=== PATIENT | male | born 1950 | race Caucasian/White ===

== ENCOUNTER 2018-11-18 09:52 | Day surgery (SDC) | payer OTHER ==
[~2018-11-18] VITALS: Ht 182.9 cm; Wt 122.8 kg
[~2018-11-18 09:52] MED LIST: ATOR10 PO; Augmentin 875-1 EACH PO; CARV6.25 PO; Cymbalta30 MG PO; ENAL5 PO; Multi-Day Vita1 EACH; Norco 10-325 T1 EACH PO; PREG150 PO; SERT100 PO; TRAACE; ZOLOFT; ZOLP10 PO
--- NOTE | 2018-11-18 11:09 | NUR ---
11/18/18 1109 Richard Hayes RECEIVED REPORT FROM [facility]. PT RESTING ON GURN. FAMILY IN ROOM, CALL LIGHT IN REACH. PT DENIES ANY NEEDS AT THIS TIME. PT UPDATED ON DELAY IN ROOM DUE TO PREVIOUS CASE RUNNING LONG. WILL CONITNUE TO KEEP PT UPDATED.
== END 2018-11-18 13:13 | disposition home or self-care (01) ==
LOC: ORSCSDS 09:52
PROVIDERS: Internal Medicine Gastroenterology
PROC: 0DBN8ZX Excision of Sigmoid Colon, Via Natural or Artificial Opening Endoscopic, Diagnostic (ICD-10-PCS; principal; 2018-11-18 11:00)
PROC: 0DBP8ZX Excision of Rectum, Via Natural or Artificial Opening Endoscopic, Diagnostic (ICD-10-PCS; principal; 2018-11-18 11:00)
PROC: 0DBL8ZX Excision of Transverse Colon, Via Natural or Artificial Opening Endoscopic, Diagnostic (ICD-10-PCS; principal; 2018-11-18 11:00)
DX: Z12.11 Encounter for screening for malignant neoplasm of colon (principal); Z86.010 Personal history of colon polyps; Z80.0 Family history of malignant neoplasm of digestive organs; D12.5 Benign neoplasm of sigmoid colon; D12.3 Benign neoplasm of transverse colon; K63.5 Polyp of colon; K64.8 Other hemorrhoids; K64.4 Residual hemorrhoidal skin tags; K57.30 Diverticulosis of large intestine without perforation or abscess without bleeding; I50.9 Heart failure, unspecified; Z79.899 Other long term (current) drug therapy
CPT/HCPCS: 88305; J2704; J7120

== ENCOUNTER 2018-12-19 06:50 | Day surgery (SDC) | payer OTHER ==
[~2018-12-19] VITALS: Ht 180.3 cm; Wt 124.5 kg
[~2018-12-19 06:50] MED LIST changes: +ATOR20 PO; +DULO60 PO; +FURO20 PO; +STIOLTO RESPIMAT4 GM INH
--- NOTE | 2018-12-19 08:45 | NUR ---
Pt arrives via chair, slighty drowsy denies pain. IV right hand #22 infusing NS shady 900ml. Sbar Adam Richmond RN. Pt right radial site wnl. Pt up to brp ambulated abraham well. vss stable slight elevation in bp.
--- NOTE | 2018-12-19 12:36 | NUR ---
Pt iv removed cath intact #20 left F/A cath intact at 1220. Removed right radial tr-band dabbed dry applied cloth dot then arm board. Pt verbalized understanding of post op care. Pt stable
== END 2018-12-19 12:48 | disposition home or self-care (01) ==
LOC: MHTC 06:50
DX: I25.10 Atherosclerotic heart disease of native coronary artery without angina pectoris (principal); I11.0 Hypertensive heart disease with heart failure; I50.9 Heart failure, unspecified; E78.5 Hyperlipidemia, unspecified; G47.33 Obstructive sleep apnea (adult) (pediatric); F32.9 Major depressive disorder, single episode, unspecified; Z79.899 Other long term (current) drug therapy
CPT/HCPCS: 93458; 99152; 99153; C1769; C1894; J1644; J2250; J3010; J7030; Q9967

== ENCOUNTER 2022-03-02 10:37 | Day surgery (SDC) | payer OTHER ==
[~2022-03-02] VITALS: Ht 180.3 cm; Wt 124.0 kg
[2022-03-02] MEDS ORDERED: Aspir 8181 MG (11:46)
[2022-03-02] MEDS ORDERED: ATOR10 (11:46)
[2022-03-02] MEDS ORDERED: MELA3 (11:47)
[2022-03-02] MEDS ORDERED: Vitamin D1000 UNI1 (11:47)
[2022-03-02] MEDS ORDERED: FURO40 (11:47)
[2022-03-02] MEDS ORDERED: CYMBALTA60 M1 (11:47)
[2022-03-02] MEDS ORDERED: Vitamin B-12100 MCG (11:48)
== END 2022-03-02 13:12 | disposition home or self-care (01) ==
LOC: ORSCSDS 10:37
PROVIDERS: Internal Medicine Gastroenterology
PROC: 0DBK8ZX Excision of Ascending Colon, Via Natural or Artificial Opening Endoscopic, Diagnostic (ICD-10-PCS; principal; 2022-03-02 12:00)
PROC: 0DBH8ZX Excision of Cecum, Via Natural or Artificial Opening Endoscopic, Diagnostic (ICD-10-PCS; principal; 2022-03-02 12:00)
DX: Z12.11 Encounter for screening for malignant neoplasm of colon (principal); Z86.010 Personal history of colon polyps; Z80.0 Family history of malignant neoplasm of digestive organs; D12.2 Benign neoplasm of ascending colon; K64.4 Residual hemorrhoidal skin tags; I50.9 Heart failure, unspecified; G47.33 Obstructive sleep apnea (adult) (pediatric); F32.A Depression, unspecified; Z85.46 Personal history of malignant neoplasm of prostate; E66.9 Obesity, unspecified; I25.2 Old myocardial infarction; Z68.38 Body mass index [BMI] 38.0-38.9, adult; Z79.899 Other long term (current) drug therapy; Z79.82 Long term (current) use of aspirin
CPT/HCPCS: 88305; J2370; J2704; J7120

== ENCOUNTER 2022-03-29 06:50 | Day surgery (SDC) | payer OTHER, MEDICARE ==
[~2022-03-29 06:50] MED LIST changes: +ATOR10; +Aspir 8181 MG; +CYMBALTA60 M1; +FURO40; +MELA3; +Vitamin B-12100 MCG; +Vitamin D1000 UNI1
== END 2022-03-29 23:18 | disposition home or self-care (01) ==
LOC: MHTC 06:50
DX: I25.10 Atherosclerotic heart disease of native coronary artery without angina pectoris (principal); R06.02 Shortness of breath; Z01.810 Encounter for preprocedural cardiovascular examination
CPT/HCPCS: 78452; 93017; A9500; J0706; J2785

== ENCOUNTER 2022-04-23 06:19 | Inpatient (IN) | payer OTHER ==
[~2022-04-23] VITALS: Ht 180.3 cm; Wt 126.6 kg
[~2022-04-23 06:19] MED LIST changes: -ATOR10; -Aspir 8181 MG; +Aspir 8181 MG PO; -CYMBALTA60 M1; +CYMBALTA60 M1 PO; -FURO40; +FURO40 PO; -MELA3; +MELA3 PO; -Multi-Day Vita1 EACH; -Vitamin B-12100 MCG; +Vitamin B-12100 MCG PO; -Vitamin D1000 UNI1; +Vitamin D1000 UNI1 PO; +[UNRECOGNIZED DRUG - OTHER] PO
--- NOTE | 2022-04-23 07:23 | NUR ---
Patient up to Ambulate independently. Gait steady.Ambulatory in Day Surgery Surgical site prepped with 2% Chlorhexidine cloth wipe. Phi Paws warming gown applied. History, Chart, Medications and Allergies reviewed before start of procedure.Lungs clear T/O to Auscultation. Patient confirms NPO status and agrees with scheduled surgery. Pre-Op teaching done. Pt verbalizes understanding. Patient States Post-Procedure ride home has been arranged. Patient reports completing Chlorhexadine shower X2 prior to admission to hospital.
[2022-04-23 16:05] LABS: Hematocrit 46.3 % (37.0-53.0); Hemoglobin 14.9 g/dL (13.5-17.5)
[2022-04-23 16:16] LABS: Source, Urine Foley catheter
[2022-04-23 16:27] LABS: Appearance, Urine Hazy (Clear); Bilirubin, Urine Neg (Neg); Blood, Urine 5+ (Neg); Color, Urine Yellow (P-Yellow); Glucose Qualitative, Urine Neg (Neg); Ketones, Urine Neg (Neg); Leukocyte Esterase, Urine Neg (Neg); Nitrite, Urine Neg (Neg); Protein, Urine 1+ (Neg); Urobilinogen, Urine NORM (Normal)
[2022-04-23 17:20] LABS: Bacteria Few /hpf; Hyaline Casts 0-2 /lpf (0-2); Red Blood Cells, Urine 25-50 /hpf (0-2); Squamous Epithelial Cells Rare /hpf (Few)
--- NOTE | 2022-04-23 18:26 | NUR ---
SHIFT SUMMARY POD0 LAP APPY c PARTIAL CECECTOMY, A/OX4, VSS, TOLERATING PO, AMBULATING c SBA, VOIDING WELL. PT HAD MODERATE AMOUNT OF BLOOD FROM HIS PENIS AFTER HIS FIRST AND SECOND VOID, BOTH TIMES HE HAD BLOOD DRIPPING FOR APPROXIMATELY 10 MINUTES FOR AN ESTIMATED TOTAL OF 100ML EACH TIME, PT RINSED OFF IN SHOWER AFTER SECOND TIME AND SURGEON NOTIFIED. PER PACU REPORT, XAVIER PLACED IN OR WAS TRAUMATIC AND PT REPORTS HE BLEEDS EASY IN GROIN AREA THOUGH NOT NORMALLY FROM HIS URETHRA. XAVIER PLACED BY SURGEON AFTER SECOND VOID ONCE PT HAD RETURNED TO BED, NO BLOOD NOTED IN XAVIER AFTER IT WAS PLACED, ALL URINE OUT HAS BEEN CLEAR YELLOW SINCE XAVIER PLACED. PT REPORTS PAIN TOLERABLE WITH PO NARCOTICS ORDERED. NO OTHER EVENTS THIS SHIFT, CALL LIGHT IN REACH, WILL CTM AND REPORT TO ONCOMING NOC RN.
--- NOTE | 2022-04-24 05:25 | NUR ---
SUMMARY PT PAIN HAS BEEN MANAGED WELL. PT HAS BEEN SLEEPING COMFORTABLY. PT HAS BEEN USING CPAP WITHOUT ISSUE. PT XAVIER DRAINING CLEAR YELLOW URINE TO GRAVITY. NO BLOOD NOTED. PT CURRENTLY SLEEPING IN NO DISTRESS. CALL LIGHT IN REACH.
[2022-04-24 06:02] LABS: BASOPHILS ABSOLUTE AUTO 0.01 K/mm3 (0.00-0.23); BASOPHILS PERCENT AUTO 0 % (0-2); EOSINOPHILS PERCENT AUTO 0 % (0-6); Hematocrit 40.2 % (37.0-53.0); Hemoglobin 12.9 g/dL (13.5-17.5); IMMATURE GRAN ABSOLUTE AUTO 0.03 K/mm3 (0.00-0.10); IMMATURE GRAN PERCENT AUTO 0 % (0-1); LYMPHOCYTES ABSOLUTE AUTO 1.11 K/mm3 (0.84-5.20); LYMPHOCYTES PERCENT AUTO 12 % (21-46); MONOCYTES ABSOLUTE AUTO 0.65 K/mm3 (0.16-1.47); MONOCYTES PERCENT AUTO 7 % (4-13); Mean Corpuscular HGB 28.2 pg (26.0-34.0); Mean Corpuscular HGB Conc 32.1 g/dL (31.5-36.5); Mean Corpuscular Volume 88 fL (80-100); Mean Platelet Volume 10.3 fL (9.1-12.4); NEUTROPHILS ABSOLUTE AUTO 7.17 K/mm3 (1.96-9.15); NEUTROPHILS PERCENT AUTO 80 % (41-73); Platelet Count 216 K/mm3 (150-400); RDW Standard Deviation 61.7 fL (35.1-46.3); Red Blood Cell Count 4.57 M/mm3 (4.30-5.90); White Blood Cell Count 8.97 K/mm3 (4.00-11.30)
[2022-04-24 06:12] LABS: Bun/Creatinine Ratio 15.5 (12.0-20.0); Calcium, Blood 9.5 mg/dL (8.5-10.1); Creatinine, Blood 0.97 mg/dL (0.60-1.20); Potassium, Blood 4.6 mmol/L (3.5-5.5)
--- NOTE | 2022-04-24 08:06 | NUR ---
XAVIER PLACED BY SURGEON TO IRRIGATE BLADDER DUE TO MODERATE AMOUNTS OF BLOOD DURING URINATION, NO BLEAD CAME THROUGH XAVIER WHEN INSERTED, URINE WAS CLEAR YELLOW. PER SURGEON, XAVIER TO STAY INPLACE TO APPLY PRESSURE TO INTERIOR URETHRA TO HELP STOP BLEEDING AND AVOID OBSTRUCTION. PT TOLERATED WELL. XAVIER TO STAY IN PLACE AND BE REMOVED AT POST OP FOLLOW UP IN OFFICE IN 3 DAYS.
--- NOTE | 2022-04-24 14:22 | NUR ---
DISCHARGE SUMMARY POD1 LAP APPY/UMBILICAL HERNIA REPAIR/PARTIAL CECECTOMY, A/OX4, VSS, TOLERATING PO, AMBULATING c MINIMAL ASSISTANCE, PAIN WELL MANAGED. XAVIER IN PLACE DRAINING TO GRAVITY, MINIMAL BLOODY DISCHARGE FROM URETHRAL OPENING WHICH WAS CLEANED JUST BEFORE DISCHARGE, PT AND HIS EDUCATED ON HOW TO PROVIDE CATHETER CARE AT HOME, LUNGS CLEAR BUT SLIGHTLY DIMINISHED T/O, PT ON 3L O2 WHICH IS HIS BASELINE. DISCUSSED DISCHARGE INSTRUCTION WITH THE PATIENT AND HIS INCLUDING HOME CARE, CATHETER CARE, FOLLOW UP APPOINTMENTS FOR XAVIER REMOVAL AND SURGICAL F/U, AND MEDICATIONS. IV ACCESS REMOVED PRIOR TO DC. PT ESCORTED OUT VIA WC TO GO HOME.
[2022-05-07] MEDS ORDERED: MULVITA PO (19:02)
[2022-05-07] MEDS ORDERED: CEFD300 PO (21:47)
== END 2022-04-24 12:23 | disposition home or self-care (01) | DRG 331 ==
LOC: SURS 06:19 → PRE IP 07:30 → SURS 10:18
PROVIDERS: ADMIT Surgery
PROC: 0WQF4ZZ Repair Abdominal Wall, Percutaneous Endoscopic Approach (ICD-10-PCS; 2022-04-23)
PROC: 0DTJ4ZZ Resection of Appendix, Percutaneous Endoscopic Approach (ICD-10-PCS; principal; 2022-04-23 07:30)
PROC: 0DBH4ZZ Excision of Cecum, Percutaneous Endoscopic Approach (ICD-10-PCS; 2022-04-23 07:30)
DX: C18.1 Malignant neoplasm of appendix (principal); K42.9 Umbilical hernia without obstruction or gangrene; I11.0 Hypertensive heart disease with heart failure; I50.9 Heart failure, unspecified; G47.30 Sleep apnea, unspecified; E78.5 Hyperlipidemia, unspecified; Z85.46 Personal history of malignant neoplasm of prostate; Z90.79 Acquired absence of other genital organ(s); Z90.89 Acquired absence of other organs; Z98.890 Other specified postprocedural states; Z79.82 Long term (current) use of aspirin; Z79.899 Other long term (current) drug therapy
CPT/HCPCS: 36415; 80048; 81001; 85014; 85018; 85025; 88304; 94660; 94762; A9270; J0694; J1100; J1650; J1885; J2250; J2405; J2704; J2710; J2795; J3010; J7120

== ENCOUNTER 2023-07-08 12:29 | Emergency (ER) | payer OTHER ==
[~2023-07-08] VITALS: Ht 182.9 cm; Wt 127.0 kg
[~2023-07-08 12:29] MED LIST changes: +BUPR150ER PO; +CEFD300 PO; +MECL25 PO; +MULVITA PO; +TURMERIC538 MG; +Vitamin B Comple1 EA PO
[2023-07-08 13:11] LABS: Hematocrit 33.7 % (37.0-53.0); Hemoglobin 10.9 g/dL (13.5-17.5); Mean Corpuscular HGB 30.6 pg (26.0-34.0); Mean Corpuscular HGB Conc 32.3 g/dL (31.5-36.5); Mean Corpuscular Volume 95 fL (80-100); Platelet Count 260 K/mm3 (150-400); RDW Coefficient Variation 15.1 % (11.7-14.2); RDW Standard Deviation 52.6 fL (35.1-46.3); Red Blood Cell Count 3.56 M/mm3 (4.30-5.90); White Blood Cell Count 4.85 K/mm3 (4.00-11.30)
[2023-07-08 13:53] LABS: Albumin, Blood 2.9 g/dL (3.4-5.0); Albumin/Globulin Ratio 0.9 (0.8-1.8); Bilirubin, Total 0.5 mg/dL (0.1-1.0); Bun/Creatinine Ratio 24.3 (12.0-20.0); Calcium, Blood 8.9 mg/dL (8.5-10.1); Creatinine, Blood 0.95 mg/dL (0.60-1.20); Globulin, Blood 3.2 g/dL (2.2-4.0); Potassium, Blood 4.5 mmol/L (3.5-5.5); Total Protein, Blood 6.1 g/dL (6.4-8.2)
[2023-07-08 14:18] LABS: BASOPHILS ABSOLUTE MAN 0.09 K/mm3 (0.00-0.23); BASOPHILS PERCENT MAN 2 % (0-2); EOSINOPHILS PERCENT MAN 0 % (0-6); LYMPHOCYTES ABSOLUTE MAN 1.21 K/mm3 (0.84-5.20); LYMPHOCYTES PERCENT MAN 25 % (21-46); MONOCYTES ABSOLUTE MAN 0.53 K/mm3 (0.16-1.47); MONOCYTES PERCENT MAN 11 % (4-13); SEG NEUTROPHILS PERCENT MAN 62 % (41-73); TOTAL CELLS COUNTED 100
[2023-07-08 14:25] LABS: Influenza A, PCR NEGATIVE (NEGATIVE); Influenza B, PCR NEGATIVE (NEGATIVE); Resp Syncytial Virus, PCR NEGATIVE (NEGATIVE); SARS-Cov-2 (COVID-19) PCR, MMC NEGATIVE (NEGATIVE)
[2023-07-08 15:30] VITALS: BP 119/67
== END 2023-07-08 15:40 | disposition home or self-care (01) ==
LOC: ER 12:29
PROVIDERS: Emergency Medicine; Student in an Organized Health Care Education/Training Program
DX: R55 Syncope and collapse (principal); Z11.52 Encounter for screening for COVID-19; Z79.899 Other long term (current) drug therapy; Z79.82 Long term (current) use of aspirin
CPT/HCPCS: 0241U; 71045; 80053; 84484; 85025; 86850; 86900; 86901; 93005; 93010; 93242; J7030

== ENCOUNTER 2023-07-31 17:54 | Inpatient (IN) | payer OTHER ==
[~2023-07-31] VITALS: Ht 188 cm; Wt 90.7 kg
[2023-07-31 20:15] LABS: BASOPHILS ABSOLUTE AUTO 0.04 K/mm3 (0.00-0.23); BASOPHILS PERCENT AUTO 1 % (0-2); EOSINOPHILS ABSOLUTE AUTO 0.14 K/mm3 (0.00-0.68); EOSINOPHILS PERCENT AUTO 3 % (0-6); Hematocrit 21.6 % (37.0-53.0); Hemoglobin 6.4 g/dL (13.5-17.5); IMMATURE GRAN ABSOLUTE AUTO 0.02 K/mm3 (0.00-0.10); IMMATURE GRAN PERCENT AUTO 0 % (0-1); LYMPHOCYTES ABSOLUTE AUTO 0.94 K/mm3 (0.84-5.20); LYMPHOCYTES PERCENT AUTO 19 % (21-46); MONOCYTES ABSOLUTE AUTO 0.29 K/mm3 (0.16-1.47); MONOCYTES PERCENT AUTO 6 % (4-13); Mean Corpuscular HGB 24.4 pg (26.0-34.0); Mean Corpuscular HGB Conc 29.6 g/dL (31.5-36.5); Mean Corpuscular Volume 82 fL (80-100); Mean Platelet Volume 9.7 fL (9.1-12.4); NEUTROPHILS ABSOLUTE AUTO 3.48 K/mm3 (1.96-9.15); NEUTROPHILS PERCENT AUTO 71 % (41-73); Platelet Count 258 K/mm3 (150-400); RDW Coefficient Variation 19.1 % (11.7-14.2); RDW Standard Deviation 57.7 fL (35.1-46.3); Red Blood Cell Count 2.62 M/mm3 (4.30-5.90); White Blood Cell Count 4.91 K/mm3 (4.00-11.30)
[2023-07-31] MEDS ORDERED: ACET500 PO (20:49)
[2023-07-31] MEDS ORDERED: LATA.005SO RIGHTEYE (20:52)
[2023-07-31] MEDS ORDERED: NAPR500 PO (20:53)
[2023-07-31 21:12] LABS: Albumin, Blood 2.9 g/dL (3.4-5.0); Albumin/Globulin Ratio 0.9 (0.8-1.8); Bilirubin, Total 0.5 mg/dL (0.1-1.0); Bun/Creatinine Ratio 23.1 (12.0-20.0); Creatinine, Blood 0.82 mg/dL (0.60-1.20); Globulin, Blood 3.2 g/dL (2.2-4.0); Potassium, Blood 4.1 mmol/L (3.5-5.5); Total Protein, Blood 6.1 g/dL (6.4-8.2)
[2023-07-31] MEDS ORDERED: Meclizine HCl 25 MG Tab PO PRN (21:20)
[2023-07-31] MEDS ORDERED: Acetaminophen 325 MG TABLET PO PRN (21:25)
[2023-07-31] MEDS ORDERED: FLU VACC QS2023-24(6MOS UP)/PF 60 MCG/0.5 ML SYRINGE IM ONE (21:30)
[2023-07-31] MEDS ORDERED: Docusate Sodium/Senna 1 Tab PO PRN (21:40)
[2023-07-31] MEDS ORDERED: Pantoprazole Sodium 40 MG Injection IV SCH (22:00)
[2023-07-31] MEDS ORDERED: NS 250 ML IV PRN (22:20)
[2023-07-31 23:05] VITALS: BP 145/72
[2023-07-31 23:24] VITALS: BP 151/70
[2023-07-31 23:40] VITALS: BP 149/71
[2023-07-31 23:41] VITALS: BP 149/71
[2023-08-01] VITALS (9 sets, daily range): BP systolic 135–159; BP diastolic 67–81
--- NOTE | 2023-08-01 05:58 | NUR ---
SHIFT SUMMARY: "FUENTES" IS A&OX4. VSS, NO ACUTE EVENTS OVERNIGHT. 2 UNITS PRBCs INFUSED WITHOUT ANY ADVERSE REACTION. PT IS PLEASANT AND COOPERATIVE. MAINTAINING SATS ON 3 L VIA NASAL CANNULA OR BLEED IN WHEN USING CPAP. CONTINUOUS PULSE OX IN PLACE. PT IS TOLERATING PO INTAKE WELL. IV TO BILATERAL ACs PATENT. HE IS LYING IN BED WITH THE CALL LIGHT IN REACH. WILL GIVE REPORT TO DAY SHIFT RN.
[2023-08-01] MEDS ORDERED: Sod Ferric Gluc Complx/Sucrose 125 MG in NS 100 ML IV SCH (06:00)
[2023-08-01 07:23] LABS: Bilirubin, Total 0.8 mg/dL (0.1-1.0); Bun/Creatinine Ratio 19.6 (12.0-20.0); Calcium, Blood 9.1 mg/dL (8.5-10.1); Creatinine, Blood 0.82 mg/dL (0.60-1.20); Globulin, Blood 3.1 g/dL (2.2-4.0); Potassium, Blood 4.4 mmol/L (3.5-5.5); Total Protein, Blood 6.1 g/dL (6.4-8.2)
[2023-08-01 07:26] LABS: Hematocrit 27.1 % (37.0-53.0); Hemoglobin 8.2 g/dL (13.5-17.5)
[2023-08-01] MEDS ORDERED: Carvedilol 6.25 MG Tab PO SCH (08:00)
[2023-08-01] MEDS ORDERED: DULoxetine HCL 30 MG Cap DR PO SCH (09:00)
[2023-08-01] MEDS ORDERED: Cholecalciferol 1000 Unit Tablet (=25MCG) PO SCH (09:00)
[2023-08-01] MEDS ORDERED: buPROPion HCL 150 MG TAB.SR.12H PO SCH (09:00)
[2023-08-01] MEDS ORDERED: Multivitamins 1 Tab PO SCH (09:00)
[2023-08-01] MEDS ORDERED: Furosemide 40 MG Tab PO SCH (09:00)
[2023-08-01] MEDS ORDERED: Pregabalin 75 MG Cap PO SCH (09:00)
[2023-08-01] MEDS ORDERED: Atorvastatin 40 MG Tab PO SCH (09:00)
[2023-08-01 09:18] LABS: IMMATURE RETIC FRACTION 26.8 % (2.3-16.0); RETIC HGB EQUIVALENT 17.7 pg (28.20-36.60); RETICULOCYTE COUNT PERCENT 3.3 % (0.50-2.50)
[2023-08-01 09:19] LABS: RETICULOCYTE ABSOLUTE 0.1089 M/mm3 (0.0200-0.1100)
[2023-08-01 12:45] LABS: Hematocrit 27.2 % (37.0-53.0); Hemoglobin 8.4 g/dL (13.5-17.5)
--- NOTE | 2023-08-01 17:23 | NUR ---
SHIFT SUMMARY PATIENT ALERT AND INTERACTIVE. PATIENT ANXOUS ABOUT AMBULATING AND FEAR OF SYNCOPAL EVENTS. PATIENT ABLE TO STAND AT BEDSIDE AND MARCH IN PLACE WITH MINIMAL LIGHTHEADEDNESS. PATIENT CONTINUES TO REQUIRE O2 AT 3L TO KEEP BIOX GREATER THAN 90. NO SIGNS OF ACTIVE BLEEDING NOTED. H&H IMPROVED AFTER INFUSION. IRON INFUSION COMPLETED. EDUCATION PROVIDED RELATED TO CHF, FLUID RESTRICTION, LOW SODIUM DIET, IRON RICH FOODS, AND MEDICATIONS. PATIENT HOPEFUL TO GO HOME SOON. AT BEDSIDE AND VERY SUPPORTIVE TO PATIENT.
[2023-08-01] MEDS ORDERED: Latanoprost 0.005% Opth Soln 2.5 ML RIGHTEYE SCH (21:00)
[2023-08-01] MEDS ORDERED: Melatonin 3 MG Tab PO SCH (21:00)
[2023-08-02 04:09] VITALS: BP 124/65
--- NOTE | 2023-08-02 05:03 | NUR ---
Shift Summary Patient is alert and oriented x 4. Respirations are regular and unlabored. Skin is warm and dry. He is on oxygen per NC at 3L and has 3L to Cpap while sleeping. He has IVs in bilateral AC. They flush without difficutly. He denies pain. Bed is in low position with call light in reach. Slept most of this shift.
[2023-08-02 07:36] VITALS: BP 141/79
[2023-08-02 08:58] LABS: Hematocrit 28.7 % (37.0-53.0); Hemoglobin 8.4 g/dL (13.5-17.5)
== END 2023-08-02 13:42 | disposition home or self-care (01) | DRG 811 ==
LOC: ER 17:54 → MEDS 20:10
PROVIDERS: Emergency Medicine; Family Medicine; Internal Medicine; Student in an Organized Health Care Education/Training Program; ADMIT Internal Medicine
PROC: 30233N1 Transfusion of Nonautologous Red Blood Cells into Peripheral Vein, Percutaneous Approach (ICD-10-PCS; principal; 2023-07-31)
DX: D64.9 Anemia, unspecified (principal); J96.21 Acute and chronic respiratory failure with hypoxia; I50.32 Chronic diastolic (congestive) heart failure; K59.00 Constipation, unspecified; F32.A Depression, unspecified; K64.9 Unspecified hemorrhoids; E78.5 Hyperlipidemia, unspecified; G47.33 Obstructive sleep apnea (adult) (pediatric); G62.9 Polyneuropathy, unspecified; J98.4 Other disorders of lung; Z79.82 Long term (current) use of aspirin
CPT/HCPCS: 36415; 71046; 80053; 82607; 82728; 82746; 83540; 83550; 85014; 85018; 85025; 85045; 86850; 86900; 86901; 86923; 94660; 94762; 99284-25; A9270; C9113; J2916; J7050; P9016

== ENCOUNTER 2023-08-06 01:04 | Inpatient (IN) | payer OTHER ==
[2023-08-06] VITALS (53 sets, daily range): BP systolic 104–159; BP diastolic 54–99
[~2023-08-06] VITALS: Ht 182.9 cm; Wt 127.5 kg
[~2023-08-06 01:04] MED LIST changes: +ACET500 PO; +LATA.005SO RIGHTEYE; +NAPR500 PO
[2023-08-06 01:32] LABS: Base Excess Venous -0.6 mmol/L; Bicarbonate Venous 23.8 mmol/L (24.0-30.0); PCO2 Venous 43.7 mmHg (38-42); pH Blood Venous 7.36 (7.34-7.37)
[2023-08-06 01:35] LABS: BASOPHILS ABSOLUTE AUTO 0.06 K/mm3 (0.00-0.23); BASOPHILS PERCENT AUTO 1 % (0-2); EOSINOPHILS ABSOLUTE AUTO 0.18 K/mm3 (0.00-0.68); EOSINOPHILS PERCENT AUTO 3 % (0-6); Hematocrit 27.8 % (37.0-53.0); Hemoglobin 8.1 g/dL (13.5-17.5); IMMATURE GRAN ABSOLUTE AUTO 0.04 K/mm3 (0.00-0.10); IMMATURE GRAN PERCENT AUTO 1 % (0-1); LYMPHOCYTES ABSOLUTE AUTO 0.94 K/mm3 (0.84-5.20); LYMPHOCYTES PERCENT AUTO 13 % (21-46); MONOCYTES PERCENT AUTO 8 % (4-13); Mean Corpuscular HGB 25.2 pg (26.0-34.0); Mean Corpuscular HGB Conc 29.1 g/dL (31.5-36.5); Mean Corpuscular Volume 87 fL (80-100); Mean Platelet Volume 10.5 fL (9.1-12.4); NEUTROPHILS ABSOLUTE AUTO 5.36 K/mm3 (1.96-9.15); NEUTROPHILS PERCENT AUTO 75 % (41-73); NRBC ABSOLUTE 0.03 K/mm3 (0.00-0.02); NRBC Auto 0.4 /100 WBC (0.0-0.2); Platelet Count 288 K/mm3 (150-400); RDW Standard Deviation 65.7 fL (35.1-46.3); Red Blood Cell Count 3.21 M/mm3 (4.30-5.90); White Blood Cell Count 7.18 K/mm3 (4.00-11.30)
[2023-08-06 01:56] LABS: Alanine Aminotransfer (ALT/SGP 14 U/L (12-78); Albumin, Blood 2.9 g/dL (3.4-5.0); Albumin/Globulin Ratio 0.9 (0.8-1.8); Alk Phos 108 U/L (50-136); Anion Gap 0 mmol/L (6-16); Aspartate Aminotrans (AST/SGOT 17 U/L (12-37); Bilirubin, Total 0.6 mg/dL (0.1-1.0); Blood Urea Nitrogen 31 mg/dL (8-24); Bun/Creatinine Ratio 26.1 (12.0-20.0); CO2, Blood 29 mmol/L (21-32); Calcium, Blood 9.2 mg/dL (8.5-10.1); Chloride, Blood 111 mmol/L (98-108); Creatinine, Blood 1.19 mg/dL (0.60-1.20); Ethanol (Alcohol), Blood, Med <3 mg/dL; Globulin, Blood 3.4 g/dL (2.2-4.0); Glomerular Filtration Rate 64 (60-); Glucose, Blood 100 mg/dL (70-99); Magnesium, Blood 2.4 mg/dL (1.6-2.4); Phosphorus, Blood 3.7 mg/dL (2.5-4.9); Potassium, Blood 3.9 mmol/L (3.5-5.5); Sodium, Blood 140 mmol/L (136-145); Total Protein, Blood 6.3 g/dL (6.4-8.2)
[2023-08-06 02:01] LABS: Source, Urine Clean Catch
[2023-08-06 02:03] LABS: D-Dimer, Quantitative 1.4 mg/L FEU (0.00-0.52); International Normalized Ratio 1.08; Prothrombin Time Results 11.3 Sec (9.7-11.5)
[2023-08-06 02:12] LABS: Bilirubin, Urine Neg (Neg); Blood, Urine Neg (Neg); Glucose Qualitative, Urine Neg (Neg); Ketones, Urine 1+ (Neg); Leukocyte Esterase, Urine Neg (Neg); Nitrite, Urine Neg (Neg); Protein, Urine 1+ (Neg); Specific Gravity, Urine 1.025 (1.003-1.022); Urobilinogen, Urine NORM (Normal)
[2023-08-06 02:19] LABS: Appearance, Urine Clear (Clear); Color, Urine Yellow (P-Yellow)
[2023-08-06 02:26] LABS: U Amphetamine Screen Not Detected; U Barbituate Screen Not Detected; U Benzodiazapine Screen Not Detected; U Buprenorphine Screen Not Detected; U Cannabinoids Screen Not Detected; U Cocaine Screen Not Detected; U Methadone Screen Not Detected; U Methamphetamine Screen Not Detected; U Opiates Screen Not Detected; U Oxycodone Screen Not Detected; U Phencyclidine Screen Not Detected
[2023-08-06 02:28] LABS: Influenza A, PCR NEGATIVE (NEGATIVE); Influenza B, PCR NEGATIVE (NEGATIVE); Resp Syncytial Virus, PCR NEGATIVE (NEGATIVE); SARS-Cov-2 (COVID-19) PCR, MMC NEGATIVE (NEGATIVE)
[2023-08-06] MEDS ORDERED: Azithromycin 500 MG in NS 250 ML IV ONE (03:45)
[2023-08-06] MEDS ORDERED: CefTRIAXone Sodium 1,000 MG in NS 50 ML IV ONE (03:45)
[2023-08-06] MEDS ORDERED: FLU VACC QS2023-24(6MOS UP)/PF 60 MCG/0.5 ML SYRINGE IM ONE (04:15)
[2023-08-06] MEDS ORDERED: Albuterol 2.5 MG/3 ML VIAL INH PRN (04:20)
[2023-08-06] MEDS ORDERED: Ipratropium/Albuterol SulF 2.5-0.5MG/3 ML Amp INH SCH (04:20)
[2023-08-06] MEDS ORDERED: Heparin Sodium,Porcine/0.5 NS 500 ML IV SCH (05:45)
--- NOTE | 2023-08-06 06:21 | NUR ---
ASSUMPTION OF CARE/TRANSFER OF CARE THIS RN ASSUMED CARE OF PT AROUND 0530, REPORT FROM PATIENT ACCESS ELISA. PT ARRIVED VIA ER PERICO, PT ON BIPAP 06/02, FIO2 40%, SPO2 99%. PT RR 18. WOB INCREASED - PT USING ACCESSORY MUSCLES TO BREATHE. VS; SBP 136/74 (85), SR WITH HEART OF 99, AFEBRILE WITH TEMP OF 97.7. PT DID BRIEFLY OPEN EYES TO STERNAL RUB AND PAIN, HOWEVER QUICKLY FELL BACK TO SLEEP. PT MOVING ALL EXTREMITIES, ALTHOUGH MODERATE TREMORS NOTED. PT IS FOLLOWING COMMANDS, STRENGTH INTACT IN BILATERAL UPPER AND LOWER EXTERMITIES. PUPILS REACTIVE AND EQUAL TO LIGHT. ALTHOUGH L PUPIL IS RESPONDING QUICKER THAN THE RIGHT. PT'S BILATERAL FEET APPEAR BLUE AND COLD TO THE TOUCH, TIBIAL AND PEDAL PULSES LOCATED WITH DOPPLER - R PULSE FAINT AND THREADY, L PULSE STRONG. LS COARSE. SKIN INTACT, MULIPTLE MOLES NOTED SCATTERED T/O BODY. AT BEDSIDE, EMOTIONAL AND TEARFUL. STATES PT HAS BEEN IN MULTIPLE TIMES AND HAS SLOWLY AND STEADILY DECLINING AT HOME. STATES PT HAS BECOME PROGRESSIVELY MORE WEAK AND HAS BEEN "STRUGGLING TO WALK AT HOME OR DO MUCH". PT ARRIVED, NOT RESPONSIVE, WOB INCREAING. HUSKER OPERATOR INTO SEE PT, ICU HUSKER OPERATOR IN TO SEE PT. ORDERS FOR TRANSFER. REPORT TO DANNA NEUMANN. PT LEFT VIA PCU BED, ON BIPAP WITH AND PT'S BELONGINGS.
--- NOTE | 2023-08-06 07:11 | NUR ---
TRANSFER: PT ARRIVED TO ICU 6 FROM PCU VIA BED AT 0635. PT SLID ACROSS TO ICU BED. PT ON BIPAP WITH SETTINGS 16/8 40%. SPO2 >90%. LUNG SOUNDS DIMINISHED T/O. FIXING CARPENTER IN PLACE, SR WITH HR 90'S. PT OPENING EYES TO VERBAL STIMULI, NODDING HEAD YES AND NO TO QUESTIONS. ALL BELONGINGS SENT WITH PT. AT THE BEDSIDE. HEPARIN DRIP STARTED AT 18 UNITS/KG/HR. PIV TO RFA AND LAC, PATENT AND INFUSING. REPORT GIVEN TO DAY SHIFT RN.
[2023-08-06 07:19] LABS: BASOPHILS ABSOLUTE AUTO 0.07 K/mm3 (0.00-0.23); BASOPHILS PERCENT AUTO 1 % (0-2); EOSINOPHILS ABSOLUTE AUTO 0.17 K/mm3 (0.00-0.68); EOSINOPHILS PERCENT AUTO 3 % (0-6); Hematocrit 28.1 % (37.0-53.0); Hemoglobin 8.2 g/dL (13.5-17.5); IMMATURE GRAN ABSOLUTE AUTO 0.04 K/mm3 (0.00-0.10); IMMATURE GRAN PERCENT AUTO 1 % (0-1); LYMPHOCYTES ABSOLUTE AUTO 0.95 K/mm3 (0.84-5.20); LYMPHOCYTES PERCENT AUTO 15 % (21-46); MONOCYTES ABSOLUTE AUTO 0.48 K/mm3 (0.16-1.47); MONOCYTES PERCENT AUTO 8 % (4-13); Mean Corpuscular HGB 25.2 pg (26.0-34.0); Mean Corpuscular HGB Conc 29.2 g/dL (31.5-36.5); Mean Corpuscular Volume 86 fL (80-100); Mean Platelet Volume 10.3 fL (9.1-12.4); NEUTROPHILS ABSOLUTE AUTO 4.46 K/mm3 (1.96-9.15); NEUTROPHILS PERCENT AUTO 72 % (41-73); Platelet Count 241 K/mm3 (150-400); RDW Coefficient Variation 21.5 % (11.7-14.2); RDW Standard Deviation 67.3 fL (35.1-46.3); Red Blood Cell Count 3.26 M/mm3 (4.30-5.90); White Blood Cell Count 6.17 K/mm3 (4.00-11.30)
[2023-08-06 07:49] LABS: Albumin, Blood 2.8 g/dL (3.4-5.0); Albumin/Globulin Ratio 0.8 (0.8-1.8); Bilirubin, Total 0.5 mg/dL (0.1-1.0); Bun/Creatinine Ratio 26.8 (12.0-20.0); Calcium, Blood 9.2 mg/dL (8.5-10.1); Creatinine, Blood 1.12 mg/dL (0.60-1.20); Globulin, Blood 3.4 g/dL (2.2-4.0); Total Protein, Blood 6.2 g/dL (6.4-8.2)
--- NOTE | 2023-08-06 08:00 | NUR ---
INITIAL ASSESSMENT PATIENT RESPONDS TO VERBAL STIMULI. PATIENT IS LETHARGIC AND HAS BEEN SLEEPING. PATIENT ORIENTED TO SELF, , MONTH AND YEAR. PATIENT DISORIENTED TO TOWN AND BUILDING. PATIENT WEAK BUT ABLE TO MOVE ALL EXTREMITIES. PATIENT HAS OCCASIONAL MUSCLE JERKING. PATIENT AFEBRILE. PATIENT DENIES PAIN. LUNGS DIMINISHED THROUGHOUT. PATIENT SATTING 90% AND GREATER ON BIPAP AT 16/8, RATE OF 12 AND 40% FIO2. PATIENT HAS OCCASIONAL PRODUCTIVE COUGH. PATIENT STATES PHLEGM IS GODINEZ/ GREEN IN COLOR. PATIENT IN SR WITH PVCS, HR IN THE 90S. SBP LOW 100S TO 1-TEENS. CAP REFILL GREATER THAN 3 SECONDS IN R FOOT. R TIBIAL PULSE DOPPLER. 1+ EDEMA NOTED TO BLES. AND GI APPEAR WNL. SCATTERED BRUISES NOTED. HEPARIN INFUSING AT 18 UNITS/ KG/ HOUR. BED LOW, CALL LIGHT IN REACH. AT BEDSIDE. CARE CONTINUES.
[2023-08-06] MEDS ORDERED: Furosemide 10 MG/ML 4ML Vial IV SCH (09:00)
--- NOTE | 2023-08-06 11:30 | NUR ---
PATIENT TAKEN TO MRI.
--- NOTE | 2023-08-06 12:17 | NUR ---
PATIENT BACK TO ROOM FROM IMAGING.
[2023-08-06] MEDS ORDERED: Zolpidem Tartrate 10 MG Tab PO PRN (12:20)
[2023-08-06] MEDS ORDERED: Acetaminophen 500 MG Tab PO PRN (12:25)
--- NOTE | 2023-08-06 13:00 | NUR ---
PATIENT AFEBRILE. HR 80S TO 90S. SBP LOW 100S TO 120S. PATIENT BLADDER SCANNED AFTER NO VOID TODAY. BLADDER SCAN SHOWED 415 MLS OF URINE. PATIENT STRAIGHT CATHED AND 400 OUT. PATIENT SATTING 90% AND GREATER ON EITHER 6 L NC OR BIPAP 16/8 AND 40% FIO2. NO OTHER ACUTE CHANGES TO NOTE ON AT THIS TIME. CARE CONTINUES. NO COMPLAINTS. AT BEDSIDE.
--- NOTE | 2023-08-06 13:37 | NUR ---
Spiritual Care Visit. Pt. is on a Bipap and resting. Spouse Yoko is at bedside and welcomes my visit. Spouse displays evidence of tears. Facilitate a life review and listen with empathy and a calming presence. Pt. woke up when nurse adjusted his bed. Facilitated introductions with the Pt. Pt. is pleasant though he is communicating with his Bi-pap. Considered matters of brett and belief. Pt. displayed evidence of being aware and engaged. Prayed with Pt. Pt. and spouse both verbalized gratitiude for the spiritual care visit. Will remain available to Pt. and the family.
[2023-08-06 15:26] LABS: CHOL/HDL RATIO 3.4; Cholesterol 78 mg/dL (50-200); HDL Cholesterol 23 mg/dL (>39); LDL/HDL RATIO 1.3; Low Density Lipoprotein Chol 31 mg/dL (0-110); Triglycerides 121 mg/dL (30-160); Very Low Density Lipoprot Chol 24 mg/dL (6-32)
[2023-08-06] MEDS ORDERED: Dose Adjust by Pharmacy XX STA ×2 (15:40→19:02)
--- NOTE | 2023-08-06 16:00 | NUR ---
PATIENT AFEBRILE. HR IN THE 90S. SBP IN THE 130S. PATIENT REMAINS SATTING 90% AND GREATER ON EITHER BIPAP AT 12/8, RATE OF 12 OR 30% OR ON 6 L NC. BED BATH PERFORMED. NO COMPLAINTS AT THIS TIME. CARE CONTINUES.
--- NOTE | 2023-08-06 18:38 | NUR ---
SHIFT SUMMARY PATIENT LETHARGIC THIS AM BUT WAS ABLE TO WAKE AND ANSWER SOME QUESTIONS APPROPRIATELY. PATIENT HAS BECOME MORE AWAKE AND MORE ALERT THE DAY HAS GONE ON. PATIENT NOW ALERT AND ORIENTED X 4. PATIENT HAS REMAINED AFEBRILE. PATIENT HAS HAD NO COMPLAINTS OF PAIN THIS SHIFT. PATIENT HAS CONTINUED TO HAVE OCCASIONAL MUSCLE JERKS BUT LESS OFTEN AND MOSTLY DURING SLEEP. PATIENT HAS REMAINED WEAK BUT ABLE TO MOVE ALL EXTREMITIES. LUNGS HAVE REMAINED DIM THROUGHOUT. PATIENT HAS REMAINED SATTING 90% AND GREATER ON EITHER 6 L NC OR ON BIPAP AT 12/8, RATE OF 12 AND 30% FIO2. PATIENT HAS OCCASIONALLY PRODUCTIVE COUGH. PATIENT REMAINED IN SR WITH PVCS, HR 70S TO LOW 100S. SBP LOW 100S TO 150S. R TIBIAL REMAINED DOPPLERED. CAP REFILL GREATER THAN 3 SECONDS IN R FOOT. 1+ EDEMA REMAINED TO LOWER EXTREMITIES. NO BM THIS SHIFT. PATIENT HAD GOOD APPETITE AT DINNER. 400 MLS OF URINE OUT WITH STRAIGHT CATH; PATIENT HAS BEEN UNABLE TO VOID ON HIS OWN. NO CHANGES TO SKIN NOTED. PATIENT REPOSITIONED Q2H. PATIENT HAD COMPLETE BED BATH. ECHO AND MRI PERFORMED THIS SHIFT. ADMIT DATE COMPLETED THIS SHIFT. AT BEDSIDE MOST OF DAY. PATIENT HAS NO COMPLAINTS AT THIS TIME. BED LOW, CALL LIGHT IN REACH. REPORT WILL BE GIVEN TO ONCOMING HIDE SORTER NURSE SHORTLY.
--- NOTE | 2023-08-06 20:10 | NUR ---
ASSUMED CARE OF PATIENT AT 1900. REPORT RECEIVED FROM THIEN PRICE. VSS AND NO ACUTE NEEDS IDENTIFIED AT THIS TIME. HEPARIN INFUSING AT 18U/KG/HR. DENIES SOB. SEE SHIFT ASSESSMENT FOR FULL ASSESSMENT DETAILS.
[2023-08-06] MEDS ORDERED: Carvedilol 6.25 MG Tab PO SCH (21:00)
[2023-08-06] MEDS ORDERED: Latanoprost 0.005% Opth Soln 2.5 ML RIGHTEYE SCH (21:00)
[2023-08-06] MEDS ORDERED: Melatonin 3 MG Tab PO SCH (21:00)
[2023-08-06] MEDS ORDERED: Pregabalin 75 MG Cap PO SCH (21:00)
[2023-08-07] VITALS (90 sets, daily range): BP systolic 104–144; BP diastolic 48–84
[2023-08-07 03:44] LABS: Hematocrit 26.8 % (37.0-53.0); Hemoglobin 7.8 g/dL (13.5-17.5); Mean Corpuscular HGB 24.9 pg (26.0-34.0); Mean Corpuscular HGB Conc 29.1 g/dL (31.5-36.5); Mean Corpuscular Volume 86 fL (80-100); NRBC ABSOLUTE 0.02 K/mm3 (0.00-0.02); NRBC Auto 0.4 /100 WBC (0.0-0.2); Platelet Count 238 K/mm3 (150-400); RDW Coefficient Variation 21.4 % (11.7-14.2); RDW Standard Deviation 66.7 fL (35.1-46.3); Red Blood Cell Count 3.13 M/mm3 (4.30-5.90); White Blood Cell Count 5.13 K/mm3 (4.00-11.30)
[2023-08-07 04:03] LABS: Creatinine, Blood 0.88 mg/dL (0.60-1.20)
[2023-08-07] MEDS ORDERED: Clarify Drug Order XX ONE (04:20)
--- NOTE | 2023-08-07 05:51 | NUR ---
SHIFT SUMMARY PATIENT REMAINED A&O X 4 T/O ENTIRETY OF SHIFT, ABLE TO STATE NAME, DATE, PLACE, AND SITUATION. ABLE TO FOLLOW VERBAL COMMANDS AND MAKE PURPOSEFUL MOVEMENTS. AFEBRILE AND DENIED PAIN. MONITOR SHOWED SR WITH PVC's. HR 60'S-90'S. BP STABLE. SBP's 110'S-150'S. 1+ EDEMA OF BLE's. R LEG AND FOOT WARM TO TOUCH. LUNG SOUNDS DIM T/O. ON 6LPM O2 VIA NC UNTIL BEDTIME WHEN BIPAP PLACED. SETTINGS 12/8 AND FIO2 AT 30%. PT EXPERIENCED DESATURATIONS INTO 70'S. FIO2 INCREASED TO 45% WITH SATURATIONS > 93% FOLLOWING INCREASE. NO BM THIS SHIFT. BLADDER SCAN AT 0220 REVEALED 301mL URINE. PIV TO RFA INFUSING HEPARIN. PIV TO LAC FLUSHES BUT DOES NOT DRAW. CALL LIGHT IN REACH. WILL CONTINUE TO MONITOR AND REPORT TO ONCOMING RN.
--- NOTE | 2023-08-07 07:20 | NUR ---
DR. FERRELL AND DR. MAZARIEGOS IN TO SEE PATIENT. BOTH DOCTORS UPDATED ON PATIENT STATUS. INFORMED THAT HEMOGLOBIN DECREASED THIS AM FROM 8.2 TO 7.8. INFORMED THAT PATIENT UP TO 45% FIO2 ON BIPAP TO KEEP SATS 90% AND GREATER OR ON 10 L HF NC WHILE AWAKE. INFORMED THAT PATIENT ON 30% FIO2 AND 6 L NC YESTERDAY. INFORMED THAT PATIENT HAS BEEN HAVING DIFFICULTIES WITH RETENTION SINCE ADMITTED TO HOSPITAL. INFORMED THAT PATIENT HAD NO URINE OUTPUT ON CREDIT RISK OFFICER AND THAT CREDIT RISK OFFICER RN REPORTED THAT BLADDER SCAN AT 0220 SHOWED 301 MLS OF URINE IN BLADDER.
--- NOTE | 2023-08-07 08:00 | NUR ---
INITIAL ASSESSMENT PATIENT ALERT AND ORIENTED X 4, AFEBRILE. NO COMPLAINTS OF PAIN OR DISCOMFORT. LUNGS DIM THROUGHOUT. PATIENT SATTING 90% AND GREATER ON EITHER BIPAP AT 12/8, RATE OF 12 AND 45% FIO2 WITH SLEEP OR ON 10 L HF NC. PATIENT HAS OCCASIONAL COUGH. PATIENT IN SR, HR 70S TO 80S. SBP IN THE 130S. R TIBIAL PULSE DOPPLER. ALL OTHER PULSES PALPABLE. 1+ EDEMA NOTED TO BLES. GI WNL. GOOD APPETITE. LAST BM ON 08/05. PATIENT STRUGGLING WITH URINARY RETENTION THIS ADMIT. PATIENT UNABLE TO VOID AGAIN THIS AM. BLADDER SCAN SHOWED 619 MLS OF URINE IN BLADDER. PATIENT STRAIGHT CATHED AND 225 MLS OF URINE OUT FROM BLADDER. SCATTERED BRUISES NOTED T/O BODY. HEPARIN INFUSING AT 18 UNITS/ KG/ HOUR. BED LOW, CALL LIGHT IN REACH. CARE CONTINUES.
[2023-08-07] MEDS ORDERED: Cholecalciferol 1000 Unit Tablet (=25MCG) PO SCH (09:00)
[2023-08-07] MEDS ORDERED: Enoxaparin 40 MG/0.4 ML SYR SC SCH (09:00)
[2023-08-07] MEDS ORDERED: buPROPion HCL 150 MG TAB.SR.12H PO SCH (09:00)
[2023-08-07] MEDS ORDERED: CefTRIAXone Sodium 1,000 MG in NS 50 ML IV SCH (09:00)
[2023-08-07] MEDS ORDERED: DULoxetine HCL 30 MG Cap DR PO SCH (09:00)
[2023-08-07] MEDS ORDERED: Furosemide 40 MG Tab PO SCH (09:00)
[2023-08-07] MEDS ORDERED: Multivitamins 1 Tab PO SCH (09:00)
[2023-08-07] MEDS ORDERED: Atorvastatin 40 MG Tab PO SCH (09:00)
[2023-08-07] MEDS ORDERED: Aspirin 81 MG Chew PO SCH (09:00)
[2023-08-07] MEDS ORDERED: Azithromycin 200 MG/5 ML SUSP 5ML UDC PO SCH (09:00)
--- NOTE | 2023-08-07 12:10 | NUR ---
PATIENT AFEBRILE. HR IN THE 80S. SBP IN THE 130S. PATIENT REMAINS ON 10 L HF NC. NO ACUTE CHANGES TO NOTE ON AT THIS TIME. CARE CONTINUES.
[2023-08-07] MEDS ORDERED: Lidocaine 2% Jelly Uro-Jet UR ONE (14:40)
[2023-08-07 15:19] LABS: Hematocrit 28.4 % (37.0-53.0); Hemoglobin 8.2 g/dL (13.5-17.5)
[2023-08-07 15:27] LABS: Source, Urine Foley catheter
--- NOTE | 2023-08-07 15:35 | NUR ---
PATIENT AFEBRILE. HR IN THE 80S. SBP IN THE 120S. PATIENT DECREASED TO 9 L HF NC. XAVIER PLACED FOR RETENTION. NO COMPLAINTS OF PAIN. CARE CONTINUES.
[2023-08-07 15:43] LABS: Appearance, Urine Clear (Clear); Bilirubin, Urine Neg (Neg); Blood, Urine Neg (Neg); Color, Urine Yellow (P-Yellow); Glucose Qualitative, Urine Neg (Neg); Ketones, Urine Neg (Neg); Leukocyte Esterase, Urine Neg (Neg); Nitrite, Urine Neg (Neg); Protein, Urine Neg (Neg); Urobilinogen, Urine NORM (Normal)
--- NOTE | 2023-08-07 15:47 | NUR ---
ASSISTING PRIMARY RN WITH CARE. PT WITH >800 CC RETENTION, DR AGUERO CALLED, ORDER OBTAINED FOR XAVIER CATH. STUDENT NURSE ASSISTED WITH XAVIER CATHETER PLACEMENT W PT'S PERMISSION. 14 COUDE PLACED WITHOUT DIFFICULTY. UROJET USED, "IM NOT JUST SAYING THIS BUT THAT WAS THE MOST COMFORTABLE CATHETER I'VE EVER HAD PLACED".
--- NOTE | 2023-08-07 18:34 | NUR ---
SHIFT SUMMARY PATIENT REMAINED ALERT AND ORIENTED THROUGHOUT SHIFT. AFEBRILE. PATIENT WEAK BUT ABLE TO MOVE ALL EXTREMITIES. PATIENT IN GOOD SPIRITS AND JOKING WITH AND STAFF. PATIENT HAD NO COMPLAINTS OF PAIN THIS SHIFT. LUNGS DIM THROUGHOUT. PATIENT ON BIPAP AT 12/8 AND 45% FIO2 WHEN ARRIVED THIS AM. PATIENT ON 9-10 L HF NC ALL DAY WHILE AWAKE. PATIENT SR WITH OCCASIONAL PVCS. HR 70S TO 90S. SBP 1-TEENS TO 140S. 1+ EDEMA TO BLES. GI WNL. NO STOOL OUT THIS SHIFT. PATIENT HAD OKAY APPETITE. PATIENT CHANGED TO LOW SODIUM AND 2 L FLUID RESTRICTION THIS SHIFT. PATIENT CONTINUED TO STRUGGLE WITH URINATING AND COULD NOT URINATE ON OWN. PATIENT BLADDER SCANNED TWICE THIS SHIFT. SCANS SHOWED 619 AND 834 MLS OF URINE IN BLADDER. PATIENT STRAIGHT CATHED AND ONLY 225 ML OF URINE ABLE TO BE DRAINED FROM BLADDER. AFTER SECOND BLADDER SCAN, INDWELLING XAVIER PLACED. XAVIER DRAINED 1400 MLS OF URINE AFTER PLACED. NO CHANGES NOTED TO SKIN. PATIENT REPOSITIONED THROUGHOUT SHIFT AND RECEIVED COMPLETE BED BATH. HEPARIN DRIP REMAINS INFUSING AT 18 UNITS/ KG/ HOUR. CAROTID CEREBRAL DUPLEX AND HEAD/ NECK CT PERFORMED THIS SHIFT. NEURO IN [facility] CONSULTED BY DOCTORS TODAY. IN MOST OF DAY. PATIENT HAS NO COMPLAINTS AT THIS TIME. BED LOW, CALL LIGHT IN REACH. REPORT WILL BE GIVEN TO ONCOMING E[place]NY NURSE SHORTLY.
--- NOTE | 2023-08-07 19:16 | NUR ---
ASSUMED CARE OF PATIENT AT 1900. REPORT RECEIVED FROM THIEN PRICE. PT UP IN BED WITH AT BEDSIDE. VSS AND NO ACUTE NEEDS IDENTIFIED. RECEIVING O2 VIA HF NC AT 9LPM. DENIES CHEST PAIN OR SOB. SEE SHIFT ASSESSMENT FOR FULL ASSESSMENT DETAILS.
[2023-08-08] VITALS (27 sets, daily range): BP systolic 111–139; BP diastolic 57–109
[2023-08-08 03:30] LABS: BASOPHILS ABSOLUTE AUTO 0.03 K/mm3 (0.00-0.23); BASOPHILS PERCENT AUTO 1 % (0-2); EOSINOPHILS ABSOLUTE AUTO 0.08 K/mm3 (0.00-0.68); EOSINOPHILS PERCENT AUTO 2 % (0-6); Hematocrit 27.7 % (37.0-53.0); IMMATURE GRAN ABSOLUTE AUTO 0.01 K/mm3 (0.00-0.10); IMMATURE GRAN PERCENT AUTO 0 % (0-1); LYMPHOCYTES ABSOLUTE AUTO 0.91 K/mm3 (0.84-5.20); LYMPHOCYTES PERCENT AUTO 20 % (21-46); MONOCYTES ABSOLUTE AUTO 0.38 K/mm3 (0.16-1.47); MONOCYTES PERCENT AUTO 8 % (4-13); Mean Corpuscular HGB 24.8 pg (26.0-34.0); Mean Corpuscular HGB Conc 28.9 g/dL (31.5-36.5); Mean Corpuscular Volume 86 fL (80-100); Mean Platelet Volume 9.7 fL (9.1-12.4); NEUTROPHILS ABSOLUTE AUTO 3.12 K/mm3 (1.96-9.15); NEUTROPHILS PERCENT AUTO 69 % (41-73); Platelet Count 217 K/mm3 (150-400); RDW Coefficient Variation 20.6 % (11.7-14.2); RDW Standard Deviation 64.4 fL (35.1-46.3); Red Blood Cell Count 3.22 M/mm3 (4.30-5.90); White Blood Cell Count 4.53 K/mm3 (4.00-11.30)
[2023-08-08] MEDS ORDERED: Clarify Drug Order XX ONE (04:15)
[2023-08-08 04:36] LABS: Albumin, Blood 2.6 g/dL (3.4-5.0); Albumin/Globulin Ratio 0.8 (0.8-1.8); Bilirubin, Total 0.6 mg/dL (0.1-1.0); Bun/Creatinine Ratio 18.4 (12.0-20.0); Creatinine, Blood 0.92 mg/dL (0.60-1.20); Globulin, Blood 3.1 g/dL (2.2-4.0); Potassium, Blood 3.9 mmol/L (3.5-5.5); Total Protein, Blood 5.7 g/dL (6.4-8.2)
--- NOTE | 2023-08-08 05:50 | NUR ---
SHIFT SUMMARY PT REMAINED A&O X 4 T/O ENTIRETY OF SHIFT. HE WAS ABLE TO FOLLOW VERBAL COMMANDS AND MAKE PURPOSEFUL MOVEMENTS. AFEBRILE AND DENIED PAIN. MONITOR SHOWED SR WITH PVC's & HR IN 70's-90's. BP STABLE WITH SBP's IN 110's-130's. 1+ EDEMA OF BLE's. ON 9LPM HF NC DURING THE DAY, AND TRANSITIONED TO CPAP AT NIGHT WITH SETTINGS OF 10 AND 40%. PT's TO BRING IN HIS AT HOME CPAP TODAY. NO BM THIS SHIFT. NO FOOD INTAKE BUT TOLERATED LIQUIDS WELL. XAVIER PATENT AND DRAINING YELLOW URINE TO GRAVITY. PIV TO RFA INFUSING HEPARIN AT 18U/KG/HR. PIV TO LAC FLUSHES BUT DOES NOT DRAW. HEAD AND NECK IMAGING COMPLETED TODAY AND SENT TO [facility]. CALL LIGHT IN REACH. WILL CONTINUE TO MONITOR AND REPORT TO ONCOMING RN.
[2023-08-08] MEDS ORDERED: Docusate Sodium/Senna 1 Tab PO PRN (12:20)
[2023-08-08] MEDS ORDERED: Magnesium Hydroxide Conc 10 ML UDC PO PRN (14:40)
[2023-08-08] MEDS ORDERED: Sod Ferric Gluc Complx/Sucrose 125 MG in NS 100 ML IV SCH (16:59)
[2023-08-08] MEDS ORDERED: NS 250 ML IV PRN (17:30)
--- NOTE | 2023-08-08 19:02 | NUR ---
Shift summary. Pt continues to improve, up today with PT/OT. 02 demand decreasing. R/ac IV removed and new IV placed in R/forearm today. Heparin infusing at 18 units/kg/hr. Abdominal/Pelvis CT completed today. No acute events. Report given to nightshift RN.
--- NOTE | 2023-08-08 19:37 | NUR ---
ASSUMPTION OF CARE: RECEIVED REPORT FROM PRUDENCE NEUMANN. PT ALERT AND ORIENTED, ABLE TO ANSWER QUESTIONS APPROPRIATELY AND MAKE NEEDS KNOWN. PT ON 9L NC WITH SPO2 >95%. TITRATED DOWN TO 4L. PT DENIES SOB. LUNG SOUNDS DIMINISHED T/O. IRON HANDLER IN PLACE, SR WITH HR 80'S. SBP 130'S. DENIES CHEST PAIN OR PRESSURE. PIV TO LAC, INFUSING HEPARIN AT 18 UNITS/KG/HR. PIV TO RFA INFUSING TKO. NO BM YET. VOIDING INTO URINAL IND. AT THE BEDSIDE, UPDATED TO PLAN OF CARE. TOLERATING PO INTAKE WELL. BED LOW AND LOCKED, CALL LIGHT IN REACH.
[2023-08-09] VITALS (9 sets, daily range): BP systolic 117–139; BP diastolic 59–71
--- NOTE | 2023-08-09 06:10 | NUR ---
SHIFT SUMMARY: NO ACUTE CHANGES T/O THE SHIFT, PT REMAINS ALERT AND ORIENTED. ABLE TO REST OFF AND ON T/O THE SHIFT. PT ON CPAP WITH 4L BLEED IN, SPO2 >90%, NO C/O SOB. LUNGS DIM T/O. REED MAKER IN PLACE, SR WITH PVC'S, HR 80'S, SBP 120'S-130'S. DENIES CHEST PAIN/PRESSURE. LEFT ARM SWOLLEN AND WARM TO THE TOUCH, REDNESS OUTLINED WITH SKIN MARKER. ELEVATED ON PILLOWS AND WRAPPED IN WARM COMPRESS. PT DENIES PAIN. ABLE TO VOID IN URINAL WITH ASSISTANCE. NO BM THIS SHIFT. TOLERATING PO INTAKE WELL. HEPARIN DRIP AT 18 UNITS/KG/HR. BED LOW AND LOCKED, CALL LIGHT IN REACH.
[2023-08-09 06:27] LABS: BASOPHILS ABSOLUTE AUTO 0.03 K/mm3 (0.00-0.23); BASOPHILS PERCENT AUTO 1 % (0-2); EOSINOPHILS ABSOLUTE AUTO 0.11 K/mm3 (0.00-0.68); EOSINOPHILS PERCENT AUTO 3 % (0-6); Hematocrit 28.5 % (37.0-53.0); Hemoglobin 8.2 g/dL (13.5-17.5); IMMATURE GRAN ABSOLUTE AUTO 0.01 K/mm3 (0.00-0.10); IMMATURE GRAN PERCENT AUTO 0 % (0-1); LYMPHOCYTES ABSOLUTE AUTO 0.85 K/mm3 (0.84-5.20); LYMPHOCYTES PERCENT AUTO 23 % (21-46); MONOCYTES ABSOLUTE AUTO 0.31 K/mm3 (0.16-1.47); MONOCYTES PERCENT AUTO 8 % (4-13); Mean Corpuscular HGB 24.8 pg (26.0-34.0); Mean Corpuscular HGB Conc 28.8 g/dL (31.5-36.5); Mean Corpuscular Volume 86 fL (80-100); Mean Platelet Volume 11.3 fL (9.1-12.4); NEUTROPHILS ABSOLUTE AUTO 2.37 K/mm3 (1.96-9.15); NEUTROPHILS PERCENT AUTO 64 % (41-73); NRBC ABSOLUTE 0.03 K/mm3 (0.00-0.02); NRBC Auto 0.8 /100 WBC (0.0-0.2); Platelet Count 252 K/mm3 (150-400); RDW Coefficient Variation 20.2 % (11.7-14.2); RDW Standard Deviation 63.3 fL (35.1-46.3); Red Blood Cell Count 3.31 M/mm3 (4.30-5.90); White Blood Cell Count 3.68 K/mm3 (4.00-11.30)
[2023-08-09 06:43] LABS: Albumin, Blood 2.7 g/dL (3.4-5.0); Albumin/Globulin Ratio 0.9 (0.8-1.8); Bilirubin, Total 0.5 mg/dL (0.1-1.0); Bun/Creatinine Ratio 14.9 (12.0-20.0); Calcium, Blood 9.4 mg/dL (8.5-10.1); Creatinine, Blood 0.87 mg/dL (0.60-1.20); Globulin, Blood 2.9 g/dL (2.2-4.0); Potassium, Blood 4.1 mmol/L (3.5-5.5); Total Protein, Blood 5.6 g/dL (6.4-8.2)
[2023-08-09] MEDS ORDERED: Apixaban 5 MG Tab PO SCH (08:00)
[2023-08-09] MEDS ORDERED: ATOR40TA PO (12:43)
[2023-08-09] MEDS ORDERED: ELIQUIS5 M2 PO (12:47)
[2023-08-09] MEDS ORDERED: ASPI81CH PO (12:48)
[2023-08-09] MEDS ORDERED: POTA10T PO (12:52)
[2023-08-09] MEDS ORDERED: FERSU300 PO (14:56)
--- NOTE | 2023-08-09 15:48 | NUR ---
DISCHARGE PATIENT DISCHARGED @ 1540. ALL INSTRUCTIONS REVIEWED AND QUESTIONS ANSWERED. PATIENT SWITCHED FROM HOSPITAL O2 TO PORTABLE HOME CONCENTRATOR. 20G PIV TO RT FA REMOVED. BELONGINGS GIVEN TO PATIET AND PATIENT TRANSPORTED TO VEHICLE VIA EC. NO ACUTE EVENTS THIS SHIFT.
== END 2023-08-09 15:47 | disposition home or self-care (01) | DRG 64 ==
LOC: ER 01:04 → PCU 01:05 → ICUE 06:13
PROVIDERS: Emergency Medicine; Family Medicine; Family Medicine Adult Medicine; Hospitalist; Internal Medicine; ADMIT Internal Medicine
PROC: 5A09557 Assistance with Respiratory Ventilation, Greater than 96 Consecutive Hours, Continuous Positive Airway Pressure (ICD-10-PCS; principal; 2023-08-06)
PROC: 0T9B70Z Drainage of Bladder with Drainage Device, Via Natural or Artificial Opening (ICD-10-PCS; 2023-08-06)
DX: I63.9 Cerebral infarction, unspecified (principal); G92.8 Other toxic encephalopathy; I26.94 Multiple subsegmental thrombotic pulmonary emboli without acute cor pulmonale; J96.21 Acute and chronic respiratory failure with hypoxia; J96.22 Acute and chronic respiratory failure with hypercapnia; I26.99 Other pulmonary embolism without acute cor pulmonale; R65.10 Systemic inflammatory response syndrome (SIRS) of non-infectious origin without acute organ dysfunction; D62 Acute posthemorrhagic anemia; D68.59 Other primary thrombophilia; I24.89 Other forms of acute ischemic heart disease; Z99.81 Dependence on supplemental oxygen; G47.33 Obstructive sleep apnea (adult) (pediatric); F32.A Depression, unspecified; D50.9 Iron deficiency anemia, unspecified; E66.9 Obesity, unspecified; I27.20 Pulmonary hypertension, unspecified; E78.5 Hyperlipidemia, unspecified; I11.0 Hypertensive heart disease with heart failure; I50.9 Heart failure, unspecified; G62.9 Polyneuropathy, unspecified; Z86.010 Personal history of colon polyps; Z85.46 Personal history of malignant neoplasm of prostate; Z90.89 Acquired absence of other organs; Z98.890 Other specified postprocedural states; Z79.899 Other long term (current) drug therapy; Z85.038 Personal history of other malignant neoplasm of large intestine; Z91.148 Patient's other noncompliance with medication regimen for other reason; Z11.52 Encounter for screening for COVID-19; Z90.79 Acquired absence of other genital organ(s); K59.00 Constipation, unspecified; Z68.31 Body mass index [BMI] 31.0-31.9, adult
CPT/HCPCS: 0241U; 36415; 51701; 51702; 70450; 70496; 70498; 70553; 71045; 71260; 74177; 80048; 80053; 80061; 81003; 82803; 83605; 83735; 83880; 84100; 84145; 84484; 85014; 85018; 85025; 85027; 85379; 85520; 85610; 85730; 86850; 86900; 86901; 87040; 93005; 93010; 93306; 93308; 93321; 93880; 93970; 94640; 94660; 94664; 94760; 94762; 96365; 96366; 96374-59; 96375-59; 97110; 97116; 97162; 97165; 97530; 97535; 99285-25; A9270; A9579; G0378; J0456; J0696; J1644; J2916; J7050; Q9967

== ENCOUNTER 2023-09-27 07:55 | Day surgery (SDC) | payer OTHER ==
[~2023-09-27] VITALS: Ht 182.9 cm; Wt 121.6 kg
[~2023-09-27 07:55] MED LIST changes: +ASPI81CH PO; +ATOR40TA PO; +ELIQUIS5 M2 PO; +FERSU300 PO; +Lactated Ringer's 1,000 ML IV SCH; +POTA10T PO
[2023-09-27 08:41] VITALS: BP 125/87
[2023-09-27] MEDS ORDERED: Lidocaine HCl 4% 5 ML SDA ONE (10:38)
[2023-09-27] MEDS ORDERED: propofoL 60 ML IV ONE (10:40)
--- NOTE | 2023-09-27 10:58 | NUR ---
09/27/23 1058 Sav Ruiz History, Chart, Medications and Allergies reviewed before start of procedure.MONITOR INTACT WITH CONTINUOUS PULSE OXIMETRY, CONTINUOUS END TITAL CO2, AND INTERMITTENT BLOOD PRESSURE.3-LEAD EKG REVIEWED WITH PHYSICIAN PRIOR TO START OF PROCEDURE.O2 VIA POM INTACT THROUGHOUT SEDATION/PROCEDURE.See Anesthesia record.
[2023-09-27 11:39] VITALS: BP 121/69
--- NOTE | 2023-09-27 11:39 | NUR ---
PT TO DAY SURGERY STEP DOWN FROM EGD/ COLONOSCOPY. BEDSIDE REPORT RECEIVED. PT IS AWAKE,ALERT AND ORIETNED;ABLE TO MOVE SELF IN BED. RESTING QUIETY; NO COMPLAINTS. VSS.
[2023-09-27 11:51] VITALS: BP 130/70
--- NOTE | 2023-09-27 11:51 | NUR ---
PT DENIES PAIN. DECLINES PO FLUIDS.
[2023-09-27 12:07] VITALS: BP 125/68
--- NOTE | 2023-09-27 12:12 | NUR ---
Discharge instructions reviewed with patient. Patient verbalizes understanding. Copy given to patient to take home. Patient States Post-Procedure ride home has been arranged. Patient up to Ambulate independently. Gait steady.
--- NOTE | 2023-09-27 12:23 | NUR ---
Patient up to Ambulate independently. Gait steady. Discharge instructions reviewed with patient. Patient verbalizes understanding. Copy given to patient to take home. Patient States Post-Procedure ride home has been arranged. Discharged via wheelchair to private car for ride home. ALL BELONGINGS RETURNED TO PATIENT.
== END 2023-09-27 12:23 | disposition home or self-care (01) ==
LOC: ORSCMMR 07:55 → ORD 09:30 → ORSCMMR 12:23
PROVIDERS: Internal Medicine Gastroenterology
PROC: 0DBM8ZX Excision of Descending Colon, Via Natural or Artificial Opening Endoscopic, Diagnostic (ICD-10-PCS; principal; 2023-09-27 09:30)
PROC: 0DB98ZX Excision of Duodenum, Via Natural or Artificial Opening Endoscopic, Diagnostic (ICD-10-PCS; principal; 2023-09-27 09:30)
PROC: 0DB68ZX Excision of Stomach, Via Natural or Artificial Opening Endoscopic, Diagnostic (ICD-10-PCS; principal; 2023-09-27 09:30)
PROC: 0DBE8ZX Excision of Large Intestine, Via Natural or Artificial Opening Endoscopic, Diagnostic (ICD-10-PCS; principal; 2023-09-27 09:30)
PROC: 0DBN8ZX Excision of Sigmoid Colon, Via Natural or Artificial Opening Endoscopic, Diagnostic (ICD-10-PCS; principal; 2023-09-27 09:30)
DX: D50.9 Iron deficiency anemia, unspecified (principal); D68.69 Other thrombophilia; K31.7 Polyp of stomach and duodenum; K52.9 Noninfective gastroenteritis and colitis, unspecified; G47.33 Obstructive sleep apnea (adult) (pediatric); I25.10 Atherosclerotic heart disease of native coronary artery without angina pectoris; I10 Essential (primary) hypertension; K64.4 Residual hemorrhoidal skin tags; Z99.81 Dependence on supplemental oxygen; Z79.82 Long term (current) use of aspirin; Z79.01 Long term (current) use of anticoagulants; Z79.899 Other long term (current) drug therapy
CPT/HCPCS: 88305; 88342; J2001; J2704; J7120

== ENCOUNTER 2023-12-19 13:27 | Emergency (ER) | payer OTHER ==
[~2023-12-19] VITALS: Ht 182.9 cm; Wt 127.0 kg
[~2023-12-19 13:27] MED LIST changes: +B-COMPLEX1 EACH; -Lactated Ringer's 1,000 ML IV SCH; +TURMERIC CURCU1 EACH
[2023-12-19] MEDS ORDERED: MESA250ER PO (14:02)
[2023-12-19] MEDS ORDERED: NITR.4SL SL (14:03)
[2023-12-19 14:33] LABS: BASOPHILS ABSOLUTE AUTO 0.04 K/mm3 (0.00-0.23); BASOPHILS PERCENT AUTO 1 % (0-2); EOSINOPHILS ABSOLUTE AUTO 0.07 K/mm3 (0.00-0.68); EOSINOPHILS PERCENT AUTO 1 % (0-6); Hematocrit 44.4 % (37.0-53.0); Hemoglobin 14.5 g/dL (13.5-17.5); IMMATURE GRAN ABSOLUTE AUTO 0.03 K/mm3 (0.00-0.10); IMMATURE GRAN PERCENT AUTO 1 % (0-1); LYMPHOCYTES ABSOLUTE AUTO 1.42 K/mm3 (0.84-5.20); LYMPHOCYTES PERCENT AUTO 25 % (21-46); MONOCYTES ABSOLUTE AUTO 0.46 K/mm3 (0.16-1.47); MONOCYTES PERCENT AUTO 8 % (4-13); Mean Corpuscular HGB 29.2 pg (26.0-34.0); Mean Corpuscular HGB Conc 32.7 g/dL (31.5-36.5); Mean Corpuscular Volume 89 fL (80-100); Mean Platelet Volume 9.5 fL (9.1-12.4); NEUTROPHILS ABSOLUTE AUTO 3.78 K/mm3 (1.96-9.15); NEUTROPHILS PERCENT AUTO 65 % (41-73); Platelet Count 208 K/mm3 (150-400); RDW Coefficient Variation 18.6 % (11.7-14.2); RDW Standard Deviation 60.7 fL (35.1-46.3); Red Blood Cell Count 4.97 M/mm3 (4.30-5.90)
[2023-12-19 14:45] LABS: Albumin, Blood 3.4 g/dL (3.4-5.0); Bilirubin, Total 0.8 mg/dL (0.1-1.0); Bun/Creatinine Ratio 18.2 (12.0-20.0); Calcium, Blood 9.2 mg/dL (8.5-10.1); Creatinine, Blood 0.83 mg/dL (0.60-1.20); Globulin, Blood 3.4 g/dL (2.2-4.0); Potassium, Blood 4.4 mmol/L (3.5-5.5); Total Protein, Blood 6.8 g/dL (6.4-8.2)
[2023-12-19] MEDS ORDERED: HYDACE25S PR (17:03)
[2023-12-19 19:00] VITALS: BP 147/80
== END 2023-12-19 19:20 | disposition home or self-care (01) ==
LOC: ER 13:27
PROVIDERS: Emergency Medicine
DX: K62.5 Hemorrhage of anus and rectum (principal); G47.33 Obstructive sleep apnea (adult) (pediatric); Z79.899 Other long term (current) drug therapy
CPT/HCPCS: 80053; 85025; 99285

== ENCOUNTER 2024-06-22 07:26 | Day surgery (SDC) | payer OTHER ==
[~2024-06-22 07:26] MED LIST changes: +HYDACE25S PR; +MESA250ER PO; +NITR.4SL SL
== END 2024-06-22 23:00 | disposition home or self-care (01) ==
LOC: CT 07:26
DX: I25.10 Atherosclerotic heart disease of native coronary artery without angina pectoris (principal); I25.84 Coronary atherosclerosis due to calcified coronary lesion
CPT/HCPCS: 75574; Q9967

== ENCOUNTER 2024-11-09 11:37 | Emergency (ER) | payer OTHER ==
[~2024-11-09] VITALS: Ht 182.9 cm; Wt 122.5 kg
[2024-11-09 14:15] VITALS: BP 126/75
== END 2024-11-09 14:47 | disposition home or self-care (01) ==
LOC: ER 11:37
DX: K92.1 Melena (principal); K64.4 Residual hemorrhoidal skin tags; K51.90 Ulcerative colitis, unspecified, without complications; I50.9 Heart failure, unspecified; G47.33 Obstructive sleep apnea (adult) (pediatric); E78.5 Hyperlipidemia, unspecified; Z86.711 Personal history of pulmonary embolism; Z86.73 Personal history of transient ischemic attack (TIA), and cerebral infarction without residual deficits; Z79.01 Long term (current) use of anticoagulants; Z79.899 Other long term (current) drug therapy

== ENCOUNTER 2025-01-23 15:55 | Emergency (ER) | payer OTHER ==
[~2025-01-23] VITALS: Ht 180.3 cm; Wt 116.1 kg
[~2025-01-23 15:55] MED LIST changes: +Crestor40 MG PO; +DOCU100 PO; +LOSA25 PO; +OZEMPIC1 MG/0.72 SC; +PRED20 PO; +SENN187 PO; +SPIR25 PO; +WEGOVY1 MG/0.5 M SQ
[2025-01-23 16:25] VITALS: BP 100/66
[2025-01-23 17:09] LABS: BASOPHILS ABSOLUTE AUTO 0.04 K/mm3 (0.00-0.23); BASOPHILS PERCENT AUTO 1 % (0-2); EOSINOPHILS ABSOLUTE AUTO 0.05 K/mm3 (0.00-0.68); EOSINOPHILS PERCENT AUTO 1 % (0-6); Hematocrit 43.3 % (37.0-53.0); Hemoglobin 13.2 g/dL (13.5-17.5); IMMATURE GRAN ABSOLUTE AUTO 0.03 K/mm3 (0.00-0.10); IMMATURE GRAN PERCENT AUTO 0 % (0-1); LYMPHOCYTES ABSOLUTE AUTO 1.26 K/mm3 (0.84-5.20); LYMPHOCYTES PERCENT AUTO 19 % (21-46); MONOCYTES ABSOLUTE AUTO 0.35 K/mm3 (0.16-1.47); MONOCYTES PERCENT AUTO 5 % (4-13); Mean Corpuscular HGB Conc 30.5 g/dL (31.5-36.5); Mean Corpuscular Volume 96 fL (80-100); NEUTROPHILS ABSOLUTE AUTO 4.97 K/mm3 (1.96-9.15); NEUTROPHILS PERCENT AUTO 74 % (41-73); NRBC ABSOLUTE 0.00 K/mm3 (0.00-0.02); NRBC Auto 0.0 /100 WBC (0.0-0.2); Platelet Count 280 K/mm3 (150-400); RDW Coefficient Variation 15.6 % (11.7-14.2); RDW Standard Deviation 54.3 fL (35.1-46.3)
[2025-01-23 17:34] LABS: Alanine Aminotransfer (ALT/SGP 23.0 U/L (12-78); Albumin, Blood 3.3 g/dL (3.4-5.0); Albumin/Globulin Ratio 1.0 (0.8-1.8); Anion Gap 7.0 mmol/L (3-11); Aspartate Aminotrans (AST/SGOT 25.0 U/L (12-37); Bilirubin, Total 0.4 mg/dL (0.1-1.0); Blood Urea Nitrogen 20.0 mg/dL (8-24); CO2, Blood 28.0 mmol/L (21-32); Calcium, Blood 9.8 mg/dL (8.5-10.1); Chloride, Blood 108.0 mmol/L (98-108); Creatinine, Blood 0.81 mg/dL (0.60-1.20); Globulin, Blood 3.3 g/dL (2.2-4.0); Glucose, Blood 144.0 mg/dL (70-99); Potassium, Blood 4.4 mmol/L (3.5-5.5); Sodium, Blood 139.0 mmol/L (136-145); Total Protein, Blood 6.6 g/dL (6.4-8.2)
[2025-01-23] MEDS ORDERED: ACET500 PO (18:54)
== END 2025-01-23 19:19 | disposition home or self-care (01) ==
LOC: ER 15:55
PROVIDERS: Physician Assistant
DX: S00.81XA Abrasion of other part of head, initial encounter (principal); E78.5 Hyperlipidemia, unspecified; G47.33 Obstructive sleep apnea (adult) (pediatric); Z86.73 Personal history of transient ischemic attack (TIA), and cerebral infarction without residual deficits; W01.0XXA Fall on same level from slipping, tripping and stumbling without subsequent striking against object, initial encounter; Z79.899 Other long term (current) drug therapy
CPT/HCPCS: 70450; 80053; 83880; 85025; 93005; 93010; 99284-25